=== PATIENT | male | born 1960 ===

== ENCOUNTER 2023-06-20 14:27 | Emergency (ER) | payer OTHER ==
[~2023-06-20] VITALS: Ht 180.3 cm; Wt 113.6 kg
[2023-06-20 14:31] VITALS: TEMP 97.3
[2023-06-20] MEDS ORDERED: FLEXERIL 1010 MG/TAB PO (15:55)
[2023-06-20 16:06] VITALS: BP 120/83; PULSE 103
== END 2023-06-20 16:06 | disposition home or self-care (01) ==
LOC: COL.ER 14:27
DX: M25.512 Pain in left shoulder (principal); M54.2 Cervicalgia; G89.29 Other chronic pain; M54.50 Low back pain, unspecified; V89.2XXA Person injured in unspecified motor-vehicle accident, traffic, initial encounter; Y92.410 Unspecified street and highway as the place of occurrence of the external cause
CPT/HCPCS: J2360

== ENCOUNTER → 2023-08-07 | Outpatient (CLI) | payer MEDICARE, MEDICAID ==
[~2023-08-07] MED LIST: FLEXERIL 1010 MG/TAB PO; Gadoterate 15 ML VIAL IV ONE
== END ==
LOC: COL.RAD 13:43
DX: M47.812 Spondylosis without myelopathy or radiculopathy, cervical region (principal); M48.02 Spinal stenosis, cervical region; M50.323 Other cervical disc degeneration at C6-C7 level; M89.8X8 Other specified disorders of bone, other site
CPT/HCPCS: A9575